=== PATIENT | male | born 1985 | race Caucasian/White ===

== ENCOUNTER 2016-06-11 19:20 | Emergency (ER) ==
--- NOTE | 2016-06-11 21:01 | PROVIDER DOCUMENTATION ---
HPI-Musculoskeletal Pain/Inj - GENERAL Chief Complaint: Extremity Pain Stated Complaint: BILAT. ARM PAIN Time Seen by Provider: 06/11/16 20:33 Source: patient - HX OF PRESENT ILLNESS-MUSKULOSKELTAL Nature of Presenting Problem: 30 y/o WM c/o bilat hand pain x 1 day. Pt states hx of bilat forearm surgery x 9 years. States pain in area, but also states tingling. Pt reports never having this problem before, other than immediately after surgery. Denies any other sxs, including recent trauma or neck injury. Review of Systems - Adult - REVIEW OF SYSTEMS - ADULT Constitutional: reports: no symptoms reported. denies: chills, fever Eyes: reports: no symptoms reported. denies: blurred vision, double vision Ears, Nose, Mouth & Throat: reports: no symptoms reported. denies: ear pain, nose pain Cardiovascular: reports: no symptoms reported. denies: chest pain, palpitations Respiratory: reports: no symptoms reported. denies: dyspnea on exertion, shortness of breath Gastrointestinal: reports: no symptoms reported. denies: abdominal pain, nausea , vomiting Genitourinary: reports: no symptoms reported. denies: dysuria, frequency Musculoskeletal: reports: see HPI. denies: back pain, joint pain, neck pain Integumentary: reports: no symptoms reported. denies: nail changes, rash Neurological: reports: see HPI, paresthesia. denies: headache/migraines, numbness Psychiatric: reports: no symptoms reported Endocrine: reports: no symptoms reported. denies: cold intolerance, heat intolerance Hematologic/Lymphatic: reports: no symptoms reported. denies: easy bruising, prolonged bleeding Allergic/Immunologic: reports: no symptoms reported All Other Systems: Reviewed and Negative Past History - Adult - PAST MEDICAL HISTORY-ADULT Review of Records: reports: Nursing Assessment Review, Medications Reviewed Neurological: reports: other (neuropathy) - PRIOR SURGERIES/PROCEDURES Surgical/Procedure History: reports: none - IMMUNIZATION STATUS Childhood Immunizations: See Nurse Assessment Flu Vaccine: See Nurse Assessment - SOCIAL HISTORY Smoking: greater than 1 pack/day Provider spent 3-5 mins advising pt. on dangers of tobacco.: Discussed manners to quit use, and f/u contacts for add'l counseling. Physical Exam-Injury Related - Physical Exam-Injury Related Initial Vital Signs Reviewed: Yes General Appearance: alert, mild distress Eyes: pink conjunctivae Head, Ears, Nose, Mouth & Throat: normocephalic/atraumatic, moist mucous membranes Neck: full range of motion, supple, normal inspection. negative: C-spine tenderness Respiratory: lungs clear, normal breath sounds. negative: crackles, rales, rhonchi, stridor, wheezing Cardiovascular: regular rate, rhythm. negative: bradycardia, tachycardia Peripheral Pulses: radial (R): 2+, radial (L): 2+ Back Exam: no vertebral tenderness Extremity: normal range of motion, normal gait, normal capillary refill. negative: abnormal NV exam, pulse deficit, other (negative phalen's and tinel's tap at median nerve bilat.) Integumentary: normal color, warm/dry Neurologic: sensory deficit (decreased sensation in bilat hands). negative: aphasia, motor weakness, other (negative davis) Psych/Mental Status: AL, normal mood/affect, normal thought content, normal thought process, oriented x 3 Departure - Departure Time of Disposition Order: 21:15 DIAGNOSIS: Neuropathic pain Disposition: HOME 01 Certified Medical Emergency: Emergent Condition: Stable Additional Instructions: Take medications as directed. Follow up with specialist for further management. Elevate and reduce repetitive activity with hands. ED Follow Up Instructions: You have been treated by a care provider in the Emergency Department. These instructions are being provided to you so you can have an understanding of how to care for yourself upon discharge. Upon discharge from the Emergency Department, you are responsible for making arrangements for follow-up care by a physician of your choice. Take all prescribed medications as directed. Return to the Emergency Department immediately for any new or worsening symptoms. You may call the Physician Referral phone number at [phone] to obtain a list of Physicians who are taking new patients. Prescriptions: Naproxen [Naprosyn] 500 mg PO BID #60 tablet Gabapentin [Neurontin] 300 mg PO TID #60 capsule Methocarbamol [Robaxin] 500 mg PO BID #30 tablet Referrals: None,PCP [Primary Care Provider] - Anselmo Pisano MD [STAFF PHYSICIAN] - Attestation - Physician/ Mid-level Attestation Patient care was provided by Mid-level provider (FREE LANCE ARTIST/PA):: Yes Mid-level provider:: Yolanda Iverson Mid-level documentation review:: The Mid-level provider documentation, treatment plan and medical decision making was reviewed by the physician who agrees with all treatment and medical decision making by the MLP.
[2016-06-11] MEDS ORDERED: TORADOL IM ONE (21:17)
[2016-06-11] MEDS ORDERED: NORFLEX IM ONE (21:17)
[2016-06-11 21:36] VITALS: BP 132/76
== END 2016-06-11 21:37 | disposition home or self-care (01) ==
LOC: ED 19:20
DX: G62.9 Polyneuropathy, unspecified (principal); M79.642 Pain in left hand; M79.641 Pain in right hand; R20.2 Paresthesia of skin; F17.210 Nicotine dependence, cigarettes, uncomplicated; Z71.6 Tobacco abuse counseling
CPT/HCPCS: 96372; J1885; J2360

== ENCOUNTER 2016-12-23 22:35 | Observation (INO) ==
[2016-12-23] MEDS ORDERED: NS 1,000 ML IV ONE (23:29)
[2016-12-23] MEDS ORDERED: ZOFRAN IV ONE (23:30)
[2016-12-23 23:55] LABS: MANUAL DIFF NEEDED? NO
[2016-12-24 00:05] LABS: BASO% 0.4 % (0.0-0.8); EOS# 0.27 X1000 (0.0-0.7); EOS% 2.6 % (0.0-10.0); HEMATOCRIT 42.2 % (42.0-52.0); IMM GRAN# 0.04 X1000 (0.0-0.04); IMM GRAN% 0.4 % (0.0-0.5); LYMPH# 2.74 X1000 (1.2-3.4); LYMPH% 26.6 % (20.5-51.1); MCH 27.4 PG (27-31); MCHC 35.5 g/dL (33-37); MONO# 0.86 X1000 (0.11-0.59); MONO% 8.3 % (1.7-9.3); MPV 10.5 FL (7.4-10.4); NEUT% 61.7 % (42.2-75.2); PLT 310 X1000 (130-400); RBC 5.48 XMIL (4.7-6.1)
[2016-12-24 00:43] LABS: ALBUMIN 4.3 g/dL (3.5-5.0); CALCIUM 9.1 mg/dL (8.8-10.2); POTASSIUM 3.5 mmol/L (3.5-5.1); TOTAL BILIRUBIN 0.4 mg/dL (0.20-1.00)
[2016-12-24] MEDS ORDERED: NS 1,000 ML IV ONE (01:09)
[2016-12-24] MEDS ORDERED: ZOFRAN IV PRN (01:09)
[2016-12-24] MEDS ORDERED: MORPHINE IV PRN ×2 (01:09→08:21)
[2016-12-24] MEDS ORDERED: NICODERM PATCH TD ONE (02:32)
[2016-12-24] MEDS ORDERED: NICODERM PATCH TD PRN (02:34)
--- NOTE | 2016-12-24 02:36 | PROVIDER DOCUMENTATION ---
This chart was entered by Millie Carmen Scribe, acting as scribe for Rigo Day MD. HPI-Abdominal Pain/GI Problem - General Chief Complaint: Nausea/Vomiting Stated Complaint: N/V Time Seen by Provider: 12/23/16 23:17 Source: patient Allergies/Adverse Reactions: Patient Allergies Allergy/AdvReac Type Severity Reaction Status Date / Time No Known Allergies Allergy Verified 12/24/16 02:07 Home Medications: Home Medication List Medication Instructions Recorded Confirmed Last Taken Type Gabapentin [Neurontin] 600 mg PO TID 09/12/16 12/23/16 11/06/16 12:00 History Diclofenac Sodium [Diclofenac 75 mg PO DAILY 12/24/16 12/24/16 Unknown History Sodium] Hydrocodone/APAP 7.5 mg/325 mg 7.5 mg PO Q6HR PRN 12/24/16 12/24/16 Unknown History [Parker-7.5] - History of Present Illness-ABD Nature of Presenting Problems: 31 Y/O M presents to ER with the complain of Nausea and vomit X1 day. pt states that it all stated last night and is not been able to stop it. pt states that he also feels cramping in his stomach. pt denies being around any sick people or other any symptoms. Quality of Pain: reports: cramping Onset/Duration: reports: 24 hours ago Timing: reports: still present Associated Symptoms: reports: nausea, vomiting Review of Systems - Adult - REVIEW OF SYSTEMS - ADULT Constitutional: reports: no symptoms reported Eyes: reports: no symptoms reported Ears, Nose, Mouth & Throat: reports: no symptoms reported Cardiovascular: reports: no symptoms reported Respiratory: reports: no symptoms reported Gastrointestinal: reports: nausea, vomiting, other (abd cramping). denies: abdominal pain Genitourinary: reports: no symptoms reported Musculoskeletal: reports: no symptoms reported Integumentary: reports: no symptoms reported Neurological: reports: no symptoms reported Psychiatric: reports: no symptoms reported Endocrine: reports: no symptoms reported Hematologic/Lymphatic: reports: no symptoms reported Allergic/Immunologic: reports: no symptoms reported All Other Systems: Reviewed and Negative Past History - Adult - PAST MEDICAL HISTORY-ADULT Review of Records: reports: Old Records Reviewed, Nursing Assessment Review Neurological: reports: other (neuropathy) - PRIOR SURGERIES/PROCEDURES Surgical/Procedure History: reports: none - IMMUNIZATION STATUS Childhood Immunizations: See Nurse Assessment Flu Vaccine: See Nurse Assessment - FAMILY HISTORY Family History: reviewed, not pertinent - SOCIAL HISTORY Smoking: cigarettes, other (tobacco) Provider spent 3-5 mins advising pt. on dangers of tobacco.: Discussed manners to quit use, and f/u contacts for add'l counseling. Physical Exam-General - PHYSICAL EXAM-ADULT Initial Vital Signs Reviewed: Yes - CONSTITUTIONAL General Appearance: appears well, alert - EYES Eyes: PERRL/EOMI, pink conjunctivae - NECK Neck: non-tender, full range of motion, supple - RESPIRATORY Respiratory: chest non-tender, lungs clear, normal breath sounds - CARDIOVASCULAR Cardiovascular: normal peripheral pulses, regular rate, rhythm - GASTROINTESTINAL (ABDOMEN) Abdominal Exam: non tender, soft - MUSCULOSKELETAL Back Exam: no CVA tenderness, no vertebral tenderness Extremity: normal range of motion, non-tender, normal gait - SKIN Integumentary: normal color, normal turgor, warm/dry - NEUROLOGIC Neurologic: grossly normal, no motor/sensory deficits - PSYCHIATRIC Psych/Mental Status: normal mood/affect, normal thought content, normal thought process, oriented x 3 Progress - PLAN OF CARE/RESULTS Progress/Plan/Lab Results: Vital Signs - 8 hr 12/23/16 22:56 Temperature 98.5 F Pulse Rate 97 H Respiratory Rate 18 Blood Pressure 125/79 O2 Sat by Pulse Oximetry 99 Result Diagrams: 12/23/16 23:40 12/23/16 23:40 - REASSESSMENT Reassessment #1 Time Reassessed: 01:06 (pt and family swears that he never touches alcohol) Status: unchanged - CONSULTS/PCP/HOSPITALIST Notification #1 *Consult/PCP/Hospitalist*: Dr. Zavala Time Discussed: 01:09 Reason/Comments: discussed abpt pt Consult Disposition: Admit Departure - Departure Date of Disposition Decision: 12/24/16 Time of Disposition Decision: 01:07 DIAGNOSIS: Pancreatitis Disposition: ADMITTED INPATIENT 09 Certified Medical Emergency: Emergent Condition: Good - Critical Care Note This patient required my direct & personal management of CC.: No This chart was documented by the indicated scribe, (Millie Carmen Scribe) and accurately reflects the services I performed and decisions made by me, Rigo Day MD, as attested by the provider's signature.
--- NOTE | 2016-12-24 09:02 | Diag Imaging Result Doc PS360 ---
US ABDOMEN-COMPLETE - 12/24/2016 INDICATION: elevated lipase COMPARISON: None FINDINGS: The gallbladder is partially collapsed with nonspecific wall thickening. There is splenomegaly. The spleen measures 16 x 15.4 x 6.1 cm. The spleen is uniform in echotexture. The liver, pancreas, and both kidneys are normal. Common bile duct measures 4 mm. Aorta, IVC, and main portal vein are patent. IMPRESSION: 1. Splenomegaly. 2. Collapsed gallbladder with nonspecific wall thickening but otherwise no abnormality. 3. No specific abnormality at the pancreas. Electronically signed by Kory Cooper 12/24/2016 9:00 AM
[2016-12-24 11:57] LABS: HEMATOCRIT 41.4 % (42.0-52.0); HEMOGLOBIN 14.5 g/dL (14.0-18.0); MCV 77.1 FL (81-99); MPV 10.1 FL (7.4-10.4); RBC 5.37 XMIL (4.7-6.1)
[2016-12-24 12:27] LABS: ALBUMIN 4.2 g/dL (3.5-5.0); CALCIUM 9.1 mg/dL (8.8-10.2); POTASSIUM 3.7 mmol/L (3.5-5.1); TOTAL BILIRUBIN 0.3 mg/dL (0.20-1.00); TOTAL PROTEIN 7.9 g/dL (6.3-8.3)
--- NOTE | 2016-12-24 14:21 | Diag Imaging Result Doc PS360 ---
CT ABD/PELVIS ORAL CONTR ONLY - 12/24/2016 INDICATION: pancreatitis, weight loss TECHNIQUE: A CT dose reduction protocol was used. Oral contrast was administered. COMPARISON: Ultrasound from this morning FINDINGS: The lung bases are clear and the heart size is normal. There is splenomegaly. No radiodense renal stones. No hydronephrosis or hydroureter. No bowel obstruction or inflammation. Normal appendix. The liver, gallbladder, pancreas, adrenals, and kidneys are normal. There are moderate degenerative changes of the spine. No acute or suspicious bony lesion. IMPRESSION: Splenomegaly. Otherwise no acute disease. Electronically signed by Kory Cooper 12/24/2016 2:19 PM
[2016-12-24 16:25] LABS: UR AMPHETAMINES QUAL NONE DETECTED (NONE DETECT); UR BARBITUATES QUAL NONE DETECTED (NONE DETECT); UR BENZODIAZEPIN QUAL NONE DETECTED (NONE DETECT); UR CANNABINOIDS QUAL NONE DETECTED (NONE DETECT); UR COCAINE QUAL NONE DETECTED (NONE DETECT); UR MDMA QUAL NONE DETECTED (NONE DETECT); UR METHADONE QUAL NONE DETECTED (NONE DETECT); UR METHAMPHETAMINE QUAL NONE DETECTED (NONE DETECT); UR OPIATES QUAL PRESUMPTIVE POSITIVE (NONE DETECT); UR OXYCODONE QUAL PRESUMPTIVE POSITIVE (NONE DETECT); UR PCP QUAL NONE DETECTED (NONE DETECT); UR TCA QUAL NONE DETECTED (NONE DETECT)
[2016-12-24] MEDS ORDERED: TYLENOL PO PRN (16:41)
--- NOTE | 2016-12-24 17:11 | HISTORY AND PHYSICAL ---
SUBJECTIVE: Throwing up for the last 3 days. CHIEF COMPLAINT: This is a 31-year-old male with about 3 days' history of nausea, vomiting, abdominal pain for the last 3 days. Nonbilious and nonbloody. Workup in the ER revealed mild pancreatitis, and he was admitted as such. He denies a history of pancreatitis, although he says his father had pancreatitis. He denies any history of alcohol use or illicit drug use. However, he has been admitted in the past for IV drug use. He was an overdose about a month ago. Reportedly, I think on heroin, and reported heroin overdose, which I guess he stabilized and went home. In any case the patient admitted for pancreatitis. PAST MEDICAL HISTORY: 1. Peripheral neuropathy, C5-C6 neuropathy. 2. History of substance abuse, at least per record. PAST SURGICAL HISTORY: Left radial nerve surgery. FAMILY HISTORY: Positive for diabetes, hypertension in father, diabetes in the mother. SOCIAL HISTORY: No alcohol. No illicit drugs. Smokes a pack a day. ALLERGIES: No known drug allergies. MEDICATIONS: He has been on gabapentin, diclofenac, and hydrocodone. REVIEW OF SYSTEMS: Reviewed x10 systems, and otherwise negative. LABORATORY DATA: Sodium 123, creatinine 1.5, lipase of 226. PHYSICAL EXAMINATION: VITAL SIGNS: Blood pressure was 131/77, heart rate of 87, respiratory rate 18, temperature 98.5 degrees. GENERAL: A well-developed male, in no acute distress. HEAD: Normocephalic, atraumatic. EYES: Pupils equal, round, reactive to light. Extraocular movements intact. EARS/NOSE/THROAT: Moist mucous membranes. NECK: Supple. CARDIOVASCULAR: Regular rate and rhythm. No murmurs, gallops, or rubs. PULMONARY: Bilateral breath sounds. Clear to auscultation. GASTROINTESTINAL: Soft, nontender, nondistended. Bowel sounds are positive. EXTREMITIES: No clubbing or cyanosis. LYMPHATICS: No peripheral edema. NEUROLOGICAL: Nonfocal. LABORATORY DATA: White count normal. Sodium 124. BUN and creatinine 40 and 1.6. Amylase and lipase 263 and 258. Urine drug screen positive for opiates and oxycodone, which he is not on either, although he has had morphine since he has been in the hospital. Ultrasound showed a collapsed gallbladder, but no evidence of pancreatitis. ASSESSMENT: A 31-year-old white male, with clinically pancreatitis, hyponatremia. 1. Acute pancreatitis. We will continue pain management. I am going to advance his diet a little bit. IV fluids. This may be related to diclofenac versus other processes. We will screen triglycerides, levels, and follow. 2. Hyponatremia. We will continue normal saline infusion, check urine electrolytes, and monitor. 3. History of substance abuse. We will monitor for any withdrawal symptoms. At this point, he denies any current drug use. DISPOSITION: Hopefully home in the next 1-2 days. cc: Jorge Luis Briggs MD
[2016-12-24] MEDS: MORPHINE IV PRN ×2 (17:26→22:08)
[2016-12-24] MEDS: NS 1,000 ML IV SCH (17:38)
[2016-12-25] MEDS: NS 1,000 ML IV SCH ×2 (02:07→10:36)
[2016-12-25] MEDS: MORPHINE IV PRN ×4 (02:10→17:36)
[2016-12-25 07:51] LABS: HEMATOCRIT 37.5 % (42.0-52.0); HEMOGLOBIN 12.7 g/dL (14.0-18.0); MCH 27.4 PG (27-31); MCHC 33.9 g/dL (33-37); RBC 4.63 XMIL (4.7-6.1)
[2016-12-25 08:15] LABS: AGAP 7; ALBUMIN 3.7 g/dL (3.5-5.0); ALKALINE PHOSPHATASE 89 U/L (32-122); AMYLASE 86 U/L (20-200); BUN 10 mg/dL (8-22); CALCIUM 8.7 mg/dL (8.8-10.2); CHLORIDE 101 mmol/L (98-107); COSMO 271; GOT 64 U/L (10-34); GPT 21 U/L (10-44); LIPASE 106 U/L (13-60); POTASSIUM 4.2 mmol/L (3.5-5.1); SODIUM 136 mmol/L (136-145); TCO2 28 mmol/L (25-35); TRIGLYCERIDES 131 mg/dL (39-160)
[2016-12-25 15:33] VITALS: BP 127/68
[2016-12-27 11:08] LABS: HIV ANTIBODY SCREEN SEE COMMENTS
[2016-12-27 12:51] LABS: HEPATITIS PROFILE ACUTE SEE COMMENTS
[2016-12-28 11:19] LABS: HCV BY PCR SEE COMMENTS; HCV CHARGE YES
--- NOTE | 2017-01-07 17:01 | DISCHARGE SUMMARY ---
ADMISSION DATE: 12/23/2016 DISCHARGE DATE: 12/25/2016 DISCHARGE DIAGNOSES: 1. Acute on chronic pancreatitis, improved. 2. Hyponatremia, resolved. CONSULTATIONS: None. PROCEDURE: None. BRIEF HOSPITAL COURSE: The patient is a 31-year-old male who presented to the emergency department and subsequently admitted with a 3-day history of nausea, vomiting, abdominal pain. On discharge, he was able to tolerate a mechanical soft diet. He was in no distress. Was asking to go home. DISPOSITION: The patient will be discharged home. Again, discussed with him to avoid all alcohol and alcohol containing products. Discussed with him to follow up outpatient with GI regarding his acute on chronic pancreatitis. Will continue his other medications without any changes. TIME SPENT: 35 minutes was spent in discharge planning and instructions. cc: Ian Zavala MD
== END 2016-12-25 20:00 | disposition home or self-care (01) ==
LOC: P.ED 22:35 → P.MEDSURG 22:36 → INTOOBSV 22:36 → SUATTDRO 22:36
PROVIDERS: ATTEND Internal Medicine